=== PATIENT | female | born 1995 | race Caucasian/White ===

== ENCOUNTER 2019-09-27 14:29 | Emergency (ER) | payer SELFPAY ==
--- NOTE | 2019-09-27 16:32 | Event Note ---
ED Screening Note Date of service: 09/27/19 Time: 16:30 ED Screening Note: This is a 24 y.o. F. that presents to the ER with abdominal cramping and back pain for 3 days. Patient reports 11 weeks . This initial assessment/diagnostic orders/clinical plan/treatment(s) is/are subject to change based on patients health status, clinical progression and re- assessment by fellow clinical providers in the ED. Further treatment and workup at subsequent clinical providers discretion. Patient/guardian urged not to elope from the ED as their condition may be serious if not clinically assessed and managed. Initial orders include: Labs and OB US
[2019-09-27 17:10] LABS: Basophils % (Auto) 0.6 % (0.0-1.8); Eosinophils % (Auto) 0.6 % (0.0-4.3); Hematocrit 33.1 % (30.3-42.9); Hemoglobin 10.8 gm/dl (10.1-14.3); Lymphocytes # (Auto) 1.1 K/mm3 (1.2-5.4); Lymphocytes % (Auto) 23.6 % (13.4-35.0); Mean Corpuscular HGB Conc 33 % (30-34); Mean Corpuscular Volume 72 fl (79-97); Monocytes # (Auto) 0.4 K/mm3 (0.0-0.8); Monocytes % (Auto) 8.7 % (0.0-7.3); Platelet Count 213 K/mm3 (140-440)
[2019-09-27 17:21] LABS: Red Cell Distribution Width 23.4 % (13.2-15.2)
[2019-09-27 17:45] LABS: Bilirubin,Urine NEG (Negative); Blood,Urine MOD (Negative); Color,Urine Yellow (Yellow); Mucus,Urine 1+ /HPF; Protein,Urine <15 mg/dL mg/dL (Negative); Urobilinogen,Urine < 2.0 mg/dL (<2.0)
[2019-09-27 18:32] VITALS: BP 98/49
--- NOTE | 2019-09-27 20:01 | Emergency Department Report ---
ED Female HPI - General Chief complaint: Vaginal Bleeding Stated complaint: BLEEDING/11 WEEKS PREG Time Seen by Provider: 09/27/19 16:30 Source: patient Mode of arrival: Ambulatory Limitations: No Limitations - History of Present Illness Initial comments: Tanika is a very pleasant healthy 24 yo female without significant past medical hx who presents with mild cramping and heavy vaginal bleeding. DONTRELL 04/08/2020 Hx of two miscarriages one live . This is her fourth . EGA 12 weeks 2 days Gradual onset of spotting on Friday. Now menstrual type flow today. Did have outpatient US on September 09, fetus did have heartbeat according to her report MD Complaint: vaginal bleeding -: Gradual, days(s) (3) Severity: moderate Quality: cramping Consistency: constant Improves with: none Worsens with: none Are you Now?: Yes Associated Symptoms: denies other symptoms - Related Data : 4 Para: 1 A: 2 Previous Rx's Medication Instructions Recorded Last Taken Type Ciprofloxacin HCl [Ciprofloxacin 500 mg PO Q12H #14 tab 08/20/15 Unknown Rx TAB] HYDROcodone/APAP 5-325 [[place] 1 each PO Q6HR PRN #12 tablet 08/20/15 Unknown Rx 5/325] Promethazine [Phenergan TAB] 25 mg PO Q6HR PRN #10 tab 08/20/15 Unknown Rx HYDROcodone/APAP 5-325 [[place] 1 each PO Q6HR PRN #10 tablet 09/27/19 Unknown Rx 5/325] Allergies Allergy/AdvReac Type Severity Reaction Status Date / Time No Known Allergies Allergy Verified 08/19/15 20:37 ED Review of Systems ROS: Stated complaint: BLEEDING/11 WEEKS PREG Other details as noted in HPI ED Past Medical Hx - Past Medical History Previous Medical History?: No Hx Hypertension: No Hx CVA: No Hx Heart Attack/AMI: No Hx Congestive Heart Failure: No Hx Diabetes: No Hx Deep Vein Thrombosis: No Hx Pulmonary Embolism: No Hx GERD: No Hx Liver Disease: No Hx Renal Disease: No Hx Sickle Cell Disease: No Hx Arthritis: No Hx Headaches / Migraines: No Hx Seizures: No Hx Kidney Stones: No Hx Psychiatric Treatment: No Hx Asthma: No Hx COPD: No Hx Dementia: No Hx HIV: No Additional medical history: - Surgical History Past Surgical History?: No Hx Coronary Stent: No Hx Open Heart Surgery: No Hx Pacemaker: No Hx Internal Defibrillator: No Hx Cholecystectomy: No Hx Appendectomy: No Hx Breast Surgery: No - Social History Smoking Status: Never Smoker Substance Use Type: None - Medications Home Medications: Home Medications Medication Instructions Recorded Confirmed Last Taken Type Ciprofloxacin HCl [Ciprofloxacin 500 mg PO Q12H #14 tab 08/20/15 Unknown Rx TAB] HYDROcodone/APAP 5-325 [[place] 1 each PO Q6HR PRN #12 tablet 08/20/15 Unknown Rx 5/325] Promethazine [Phenergan TAB] 25 mg PO Q6HR PRN #10 tab 08/20/15 Unknown Rx HYDROcodone/APAP 5-325 [[place] 1 each PO Q6HR PRN #10 tablet 09/27/19 Unknown Rx 5/325] ED Physical Exam - General Limitations: No Limitations General appearance: alert, in no apparent distress, other (pleasant appears comfortable) - Head Head exam: Present: atraumatic, normocephalic - Eye Eye exam: Present: normal appearance - ENT ENT exam: Present: mucous membranes moist - Neck Neck exam: Present: normal inspection, full ROM - Respiratory Respiratory exam: Present: normal lung sounds bilaterally. Absent: respiratory distress, wheezes, rales, rhonchi, stridor - Cardiovascular Cardiovascular Exam: Present: regular rate, normal rhythm, normal heart sounds. Absent: systolic murmur, diastolic murmur, rubs, gallop - GI/Abdominal GI/Abdominal exam: Present: soft, normal bowel sounds. Absent: distended, tenderness, guarding, rebound - Extremities Exam Extremities exam: Present: normal inspection - Back Exam Back exam: Present: normal inspection - Neurological Exam Neurological exam: Present: alert, oriented X3 - Psychiatric Psychiatric exam: Present: normal affect, normal mood - Skin Skin exam: Present: warm, dry, intact, normal color. Absent: rash ED Course Vital Signs 09/27/19 09/27/19 09/27/19 16:31 18:20 18:21 Temperature 98.7 F 99.1 F Pulse Rate 90 92 H Respiratory 18 16 15 Rate Blood Pressure 101/49 98/49 O2 Sat by Pulse 100 100 Oximetry ED Medical Decision Making - Lab Data Result diagrams: 09/27/19 16:51 Laboratory Results - last 24 hr 09/27/19 09/27/19 09/27/19 16:51 16:51 16:51 WBC 4.5 RBC 4.60 Hgb 10.8 Hct 33.1 MCV 72 L MCH 24 L MCHC 33 RDW 23.4 H Plt Count 213 Lymph % (Auto) 23.6 Divide % (Auto) 8.7 H Eos % (Auto) 0.6 Baso % (Auto) 0.6 Lymph # 1.1 L Divide # 0.4 Eos # 0.0 Baso # 0.0 Seg Neutrophils % 66.5 Seg Neutrophils # 3.0 HCG, Qual Positive HCG, Quant 3594 H Urine Color Urine Turbidity Urine pH Ur Specific [place] Urine Protein Urine Glucose (UA) Urine Ketones Urine Blood Urine Nitrite Urine Bilirubin Urine Urobilinogen Ur Leukocyte Esterase Urine WBC (Auto) Urine RBC (Auto) U Epithel Cells (Auto) Urine Mucus Blood Type Ord Rhogam Gestat Weeks 09/27/19 09/27/19 17:10 20:08 WBC RBC Hgb Hct MCV MCH MCHC RDW Plt Count Lymph % (Auto) Divide % (Auto) Eos % (Auto) Baso % (Auto) Lymph # Divide # Eos # Baso # Seg Neutrophils % Seg Neutrophils # HCG, Qual HCG, Quant Urine Color Yellow Urine Turbidity Clear Urine pH 6.0 Ur Specific [place] 1.017 Urine Protein <15 mg/dl Urine Glucose (UA) Neg Urine Ketones Tr Urine Blood Mod Urine Nitrite Neg Urine Bilirubin Neg Urine Urobilinogen < 2.0 Ur Leukocyte Esterase Tr Urine WBC (Auto) 3.0 Urine RBC (Auto) 2.0 U Epithel Cells (Auto) 4.0 Urine Mucus 1+ Blood Type O POSITIVE Ord Rhogam Gestat Weeks Rh pos - Radiology Data Radiology results: report reviewed US: early demise/missed - Medical Decision Making Unfortunately, Tanika presents with incomplete / demise. After receiving the horrible news, she did not desire any further intervention while awaiting grommet man consultation. She will f/u with managed services sales consultant obgyn. rx: norco Critical care attestation.: If time is entered above; I have spent that time in minutes in the direct care of this critically ill patient, excluding procedure time. ED Disposition Clinical Impression: demise, Incomplete miscarriage Disposition: DC- TO HOME OR SELFCARE Is pt being admited?: No Does the pt Need Aspirin: No Condition: Stable Instructions: Spontaneous Miscarriage (ED) Prescriptions: HYDROcodone/APAP 5-325 [[place] 5/325] 1 each PO Q6HR PRN #10 tablet PRN Reason: Pain Referrals: BORIS GOOD MD [Staff Physician] - 2-3 Days Forms: Work/School Release Form(ED)
--- NOTE | 2019-09-27 20:04 | Ultrasound Report ---
TRANSABDOMINAL AND TRANSVAGINAL OB PELVIC ULTRASOUND INDICATION / CLINICAL INFORMATION: Vaginal bleeding. COMPARISON: None available. FINDINGS: Transabdominal: There is an intrauterine gestational sac. There is a pole measuring 8 weeks 5 d ays by crown-rump length. No cardiac activity is seen. The left ovary measures 2.3 x 1.1 x 1.8 cm. There is normal blood flow to the left ovary on Doppler exam. The right ovary is not seen. Transvaginal: There is an intrauterine gestational sac measuring 10 weeks 6 days. There is a po le measuring 8 weeks 5 days. No heart activity is seen. The right ovary measures 2.6 x 1.5 x 1. 7 cm. There is a 1.2 cm corpus luteal cyst in left ovary. I see no evidence of an extraovarian mass o r free fluid. IMPRESSION: Early demise/missed . Signer Name: Simone Mcdowell MD Signed: 09/27/2019 8:00 PM Workstation Name: [id number]
== END 2019-09-27 22:20 | disposition home or self-care (01) ==
LOC: ED 14:29
DX: O03.4 Incomplete spontaneous abortion without complication (principal); O36.4XX0 Maternal care for intrauterine death, not applicable or unspecified; Z79.899 Other long term (current) drug therapy; Z3A.11 11 weeks gestation of pregnancy
CPT/HCPCS: 36415; 76801; 76817; 81001; 84702; 84703; 85025; 86900; 86901